=== PATIENT | female | born 1950 | race Asian ===

== ENCOUNTER → 2024-01-01 11:10 | Outpatient (REF) | payer MEDICARE, BC, SELFPAY | LOC: HWRAD 11:10 | PROVIDERS: ATTENDING PHYSICIAN Obstetrics & Gynecology; FAMILY PHYSICIAN Family Medicine | DX: Z12.31 Encounter for screening mammogram for malignant neoplasm of breast (principal); Z13.820 Encounter for screening for osteoporosis; M81.0 Age-related osteoporosis without current pathological fracture; Z78.0 Asymptomatic menopausal state | CPT/HCPCS: 77063; 77067; 77080 ==

== ENCOUNTER 2024-05-06 20:03 | Emergency (ER) | payer MEDICARE, BC, SELFPAY ==
[2024-05-06 20:08] VITALS: BP 132/92
--- NOTE | 2024-05-06 20:31 | ED.GENMED ---
History of Present Illness
General
Chief Complaint: Heart Rate Problem
Time Seen by Provider: 05/06/24 20:17
History of Present Illness
History of Present Illness:
Patient is a 73-year-old female with history of hypertension, hyperlipidemia presenting to the emergency department palpitations. Patient states that she was in her usual state of health when she came home and was back to lay down when she felt
palpitations and bilateral jaw pain. She states that she was going to check her blood pressure and then the pain worsened so she came in for further evaluation. She denies any fevers or chills. She does have some chest pain. No shortness of
breath. No lightheadedness dizziness. No nausea vomiting. No diarrhea. No leg swelling hemoptysis recent travel or history of cancer or history of blood clot. She does not drink alcohol. No drug use. No problems with her thyroid that she is
aware of. At this time she does feel like she is back to normal. She is on metoprolol 50 mg extended release once a day that she states that she took for anxiety. She states that she was on a different beta-galindo for the anxiety though it was
switched to metoprolol few months ago.
Past History
Past History
ED Past Medical History: HTN, Hypercholesterolemia and Other (OA, migraines)
ED Past Surgical History: None
Social History
Tobacco: Non-smoker
Alcohol: None
Drug: None
Personal:
Living: with family
Employment: Employed
Family History
Family History: Hypertension
Phy Exam
Physical Exam
Physical Exam:
GENERAL: in no acute distress
HEENT: normocephalic, extraocular movements intact, moist oral mucosa
NECK: normal inspection
RESPIRATORY: no respiratory distress, clear to auscultation bilaterally
CARDIOVASCULAR: regular rate and rhythm
ABDOMEN/: soft, non-distended, non-tender to palpation, no rebound or guarding
EXTREMITIES: non-tender, no edema/swelling
NEUROLOGIC: awake and alert, moves all extremities
SKIN: warm
Course
Orders/Labs/Results
Orders:
Orders
05/06/24 20:05
Electrocardiogram (*1) Urgent
Reason for Study: Chest Pain
Cardiac Monitoring- Treatment ONCE
IV Insert/Care/Rem.- Treatment PRN
O2 Therapy [RESP] Urgent
Titrate/Wean O2 to maintain O2 sat greater than (%): 90
Special Instructions: Maintain sats >/=90%
Pulse Ox/spot Check [RESP] Urgent
Quantity: 1
Special Instructions: ON ROOM AIR
05/06/24 20:06
EKG- Treatment ONCE
05/06/24 20:36
Complete Blood Count/With Diff Urgent
Comprehensive Metabolic Panel Urgent
Magnesium Urgent
Thyroid profile [TSH Reflex To Free T4] Urgent
05/06/24 21:12
Troponin I Urgent
05/07/24 00:20
Troponin I Urgent
Abnormal Lab Results
05/06/24
20:36
Absolute Monos (auto) 1.1 H 10^3/uL
(0.1-0.6)
Monocytes % 12.2 H %
(1.7-9.3)
Sodium 127 L mmol/L
(135-145)
Chloride 94 L mmol/L
(98-107)
BUN 18 H mg/dl
(7-17)
Glucose 133 H mg/dl
(70-99)
Alkaline Phosphatase 163 H U/L
(38-126)
05/06/24 20:36
05/06/24 20:36
Vital Signs
Initial and Last Documented VS:
Initial Vital Signs
Temp Pulse Resp BP Pulse Ox
98.8 F 143 22 132/92 98
05/06/24 20:08 05/06/24 20:08 05/06/24 20:08 05/06/24 20:08 05/06/24 20:08
Last Documented Vital Signs
Temp Pulse Resp BP Pulse Ox
98.8 F 94 17 138/85 97
05/06/24 20:08 05/06/24 22:15 05/06/24 22:15 05/06/24 22:00 05/06/24 22:15
MDM/Problems Addressed
Differential Diagnosis Includes:
Patient is a 73-year-old woman with history of hypertension, hyperlipidemia currently on metoprolol presenting to the emergency department palpitations that have now resolved. Vitals here initially were notable for heart rate in the 140s. However
during my evaluation heart rate is in the 80s and per my interpretation of the monitor was in normal sinus rhythm. Exam is reassuring. Unclear cause of palpitations. Initial EKG per my interpretation A-fib with RVR. Considered PE however less
likely as she does not have any signs or symptoms to suggest. No signs of infectious etiology.. Will check electrolytes including troponin given the jaw pain.
*Critical Care Note
Total Time (30-74mins, 75-104mins- exclusive of procedures): Not Applicable
Update Note
Update Note:
Blood work notable for sodium of 127. Per chart review it appears that patient does have history of hyponatremia. Patient does state that she has history of and did require salt tablets at 1 point. She drinks about 3-4 bottles a day. She does
not appear dehydrated. She will follow-up with PCP for repeat blood work. Patient remains in normal sinus rhythm. [id number] is 3. I discussed with cardiology who recommended starting her on Eliquis and keeping the metoprolol the same and they
will follow-up with her outpatient. Initial troponin negative. However patient was having jaw pain with the episode and some chest pain so will obtain delta troponin. If negative patient can be discharged home.
ED Attending Note
-
Portions of this chart may have been created with voice recognition software.� Occasional wrong word or��sound alike� substitutions may have occurred due to the inherent limitations of voice recognition software.
Discharge Plan
Departure
Discharge Problem:
Atrial fibrillation
Instructions: Atrial Fibrillation (DC)
Prescriptions:
New
Eliquis 5 mg tablet
5 mg PO BID Qty: 20 0RF
No Action
cetirizine 10 MG tablet
10 mg PO DAILYPRN PRN (Reason: allergies)
atorvastatin [Lipitor] 20 mg Tablet
20 mg PO QPM
metoprolol succinate 50 mg Tablet Extended Release 24 Hr
50 mg PO HS
losartan 100 mg Tablet
100 mg PO HS
coenzyme Q10 [CoQ-10] 100 mg Capsule
100 mg PO QPM
melatonin 5 mg Tablet
5 mg PO HS
cholecalciferol (vitamin D3) [Vitamin D3] 50 mcg (2,000 unit) Tablet
150 mcg PO DAILY
Referrals:
Augustine Cronin MD [Family Provider] -
Daly Power MD [Active] -
Activity Restrictions/Additional Instructions:
You were seen in the Emergency Department today for A-fib. I discharged you on a blood thinner. Please follow-up with the primary care doctor as well as cardiology as he will need a refill on the blood thinner. Please also follow-up with your
primary care doctor as your sodium level was low and you need to have it repeated.
We would like for you to follow up with your primary care physician for further evaluation. If you experience fever, worsening of your symptoms, or develop any other new or concerning symptoms, please return to the Emergency Department immediately.
Please see the attached sheet for additional information.
Interventions
Interventions:
*Risk Screen - Suicide Last Done: 05/06/24 20:45
*General Assessment Last Done: 05/06/24 20:45
*Neglect/Abuse Screening Last Done: 05/06/24 20:08
ED- Fall Risk Assessment Last Done: 05/06/24 20:32
*ED COVID-19 Vaccine History Last Done: 05/06/24 20:45
ED- Cardiac Assessment Last Done: 05/06/24 20:32
ED- Pulmonary Assessment Last Done: 05/06/24 20:32
Discharge Date and Time
Print Language: SWAZI
[2024-05-06 20:33] VITALS: BP 137/78
[2024-05-06 20:42] VITALS: BMI 29.0
[2024-05-06 20:48] LABS: % Basophils 0.6 % (0-2); % Eosinophils 2.9 % (0-6); % Immature Granulocytes 0.2 % (0-0.5); % Lymphocytes 24.9 % (20.5-51.1); % Monocytes 12.2 % (1.7-9.3); % Neutrophils 59.2 % (42.2-75.2); Absolute Basophils 0.1 10^3/uL (0-0.2); Absolute Eosinophils 0.3 10^3/uL (0-0.7); Absolute Lymphocytes 2.1 10^3/uL (1.2-3.4); Absolute Monocytes 1.1 10^3/uL (0.1-0.6); Absolute Neutrophils 5.1 10^3/uL (1.4-6.5); Hematocrit 38.8 % (37.0-47.0); Hemoglobin 13.7 g/dL (12.0-16.0); Mean Corp Hgb Conc. 35.3 g/dL (33.0-37.0); Mean Corpuscular Hgb 30.5 pg (27.0-31.0); Mean Corpuscular Volume 86.4 fL (81.0-99.0); Mean Platelet Volume 9.8 fL (7.4-10.4); Nucleated Red Blood Cells % 0 %; Platelet Count 260 10^3/uL (130-400); Red Blood Cell Count 4.49 10^6/uL (4.20-5.40); Red Cell Dist. Width 12.7 % (11.5-14.5); White Blood Cell Count 8.6 10^3/uL (4.8-10.8)
[2024-05-06 21:00] VITALS: BP 142/83
[2024-05-06 21:08] LABS: ALT (SGPT) 23 U/L (0-35); AST (SGOT) 30 U/L (14-36); Albumin 4.4 g/dl (3.5-5.0); Alkaline Phosphatase 163 U/L (38-126); Blood Urea Nitrogen 18 mg/dl (7-17); Calcium 9.5 mg/dl (8.4-10.2); Carbon Dioxide 27 mmol/L (22-30); Chloride 94 mmol/L (98-107); Estimated Creatinine Clearance 77 ml/min; Glucose 133 mg/dl (70-99); Magnesium 2.1 mg/dl (1.6-2.3); Potassium 4.2 mmol/L (3.5-5.1); Sodium 127 mmol/L (135-145); Total Bilirubin 0.3 mg/dl (0.2-1.3); Total Protein 7.3 g/dl (6.3-8.2); eGFR > 60.00
[2024-05-06 21:12] VITALS: BP 151/85
[2024-05-06 22:00] VITALS: BP 138/85
[2024-05-06 22:18] LABS: Troponin I < 0.012 ng/ml
[2024-05-06 23:00] VITALS: BP 123/72
[2024-05-07] VITALS: BP 118/70
[2024-05-07 00:59] LABS: Troponin I 0.027 ng/ml
[2024-05-07 01:34] VITALS: BP 149/82
--- NOTE | 2024-05-07 01:54 | ED.GENMED ---
History of Present Illness
General
Chief Complaint: Heart Rate Problem
Time Seen by Provider: 05/06/24 20:17
Past History
Past History
ED Past Medical History: HTN, Hypercholesterolemia and Other (OA, migraines)
ED Past Surgical History: None
Social History
Tobacco: Non-smoker
Alcohol: None
Drug: None
Personal:
Living: with family
Employment: Employed
Family History
Family History: Hypertension
Course
Orders/Labs/Results
Orders:
Orders
05/06/24 20:05
Electrocardiogram (*1) Urgent
Reason for Study: Chest Pain
Cardiac Monitoring- Treatment ONCE
IV Insert/Care/Rem.- Treatment PRN
O2 Therapy [RESP] Urgent
Titrate/Wean O2 to maintain O2 sat greater than (%): 90
Special Instructions: Maintain sats >/=90%
Pulse Ox/spot Check [RESP] Urgent
Quantity: 1
Special Instructions: ON ROOM AIR
05/06/24 20:06
EKG- Treatment ONCE
05/06/24 20:36
Complete Blood Count/With Diff Urgent
Comprehensive Metabolic Panel Urgent
Magnesium Urgent
Thyroid profile [TSH Reflex To Free T4] Urgent
05/06/24 21:12
Troponin I Urgent
05/07/24 00:24
Troponin I Urgent
Abnormal Lab Results
05/06/24
20:36
Absolute Monos (auto) 1.1 H 10^3/uL
(0.1-0.6)
Monocytes % 12.2 H %
(1.7-9.3)
Sodium 127 L mmol/L
(135-145)
Chloride 94 L mmol/L
(98-107)
BUN 18 H mg/dl
(7-17)
Glucose 133 H mg/dl
(70-99)
Alkaline Phosphatase 163 H U/L
(38-126)
05/06/24 20:36
05/06/24 20:36
Vital Signs
Initial and Last Documented VS:
Initial Vital Signs
Temp Pulse Resp BP Pulse Ox
98.8 F 143 22 132/92 98
05/06/24 20:08 05/06/24 20:08 05/06/24 20:08 05/06/24 20:08 05/06/24 20:08
Last Documented Vital Signs
Temp Pulse Resp BP Pulse Ox
98.8 F 76 14 149/82 98
05/06/24 20:08 05/07/24 01:34 05/07/24 01:34 05/07/24 01:34 05/07/24 01:34
Update Note
Update Note:
05/07/2024 0140 AM
Patient remains comfortable, asymptomatic and monitor continues to show normal sinus rhythm. No recurrent episodes of atrial fibrillation.
Repeat troponin has trended up minimally 0.027 but remains within normal range and likely accelerated heart rate related in nature.
Discussed prompt follow-up with cardiology and patient elects to follow-up with pediatric intensive physician in [facility], whom she is familiar with.
She will also follow-up with her primary care physician as well.
ED Attending Note
-
Portions of this chart may have been created with voice recognition software.� Occasional wrong word or��sound alike� substitutions may have occurred due to the inherent limitations of voice recognition software.
Discharge Plan
Departure
Patient Disposition: Home (Routine Discharge)
Date of Disposition: 05/07/24
Time of Disposition: 01:40
Patient with high blood pressure during this ER visit?: No
Condition: Good
Discharge Problem:
Atrial fibrillation
Instructions: Atrial Fibrillation (DC)
Prescriptions:
New
Eliquis 5 mg tablet
5 mg PO BID Qty: 20 0RF
No Action
cetirizine 10 MG tablet
10 mg PO DAILYPRN PRN (Reason: allergies)
atorvastatin [Lipitor] 20 mg Tablet
20 mg PO QPM
metoprolol succinate 50 mg Tablet Extended Release 24 Hr
50 mg PO HS
losartan 100 mg Tablet
100 mg PO HS
coenzyme Q10 [CoQ-10] 100 mg Capsule
100 mg PO QPM
melatonin 5 mg Tablet
5 mg PO HS
cholecalciferol (vitamin D3) [Vitamin D3] 50 mcg (2,000 unit) Tablet
150 mcg PO DAILY
Referrals:
Augustine Cronin MD [Family Provider] -
Daly Power MD [Active] -
Activity Restrictions/Additional Instructions:
You were seen in the Emergency Department today for A-fib. I discharged you on a blood thinner. Please follow-up with the primary care doctor as well as cardiology as he will need a refill on the blood thinner. Please also follow-up with your
primary care doctor as your sodium level was low and you need to have it repeated.
We would like for you to follow up with your primary care physician for further evaluation. If you experience fever, worsening of your symptoms, or develop any other new or concerning symptoms, please return to the Emergency Department immediately.
Please see the attached sheet for additional information.
Interventions
Interventions:
*Risk Screen - Suicide Last Done: 05/06/24 20:45
*General Assessment Last Done: 05/06/24 20:45
*Neglect/Abuse Screening Last Done: 05/06/24 20:08
ED- Fall Risk Assessment Last Done: 05/06/24 20:32
*ED COVID-19 Vaccine History Last Done: 05/06/24 20:45
ED- Cardiac Assessment Last Done: 05/06/24 23:15
ED- Pulmonary Assessment Last Done: 05/06/24 23:15
Discharge Date and Time
Print Language: CZECH
== END 2024-05-07 01:50 | disposition home or self-care (01) ==
LOC: EMR 20:03
PROVIDERS: Emergency Medicine; EMERGENCY PHYSICIAN Student in an Organized Health Care Education/Training Program; FAMILY PHYSICIAN Family Medicine
DX: I48.91 Unspecified atrial fibrillation (principal); R68.84 Jaw pain; R07.9 Chest pain, unspecified; I10 Essential (primary) hypertension; E78.00 Pure hypercholesterolemia, unspecified; F41.9 Anxiety disorder, unspecified; M19.90 Unspecified osteoarthritis, unspecified site; G43.909 Migraine, unspecified, not intractable, without status migrainosus; Z79.899 Other long term (current) drug therapy
CPT/HCPCS: 99284; 80053; 83735; 84443; 84484; 85025; 93005

== ENCOUNTER 2024-07-21 22:05 | Emergency (ER) | payer MEDICARE, BC, SELFPAY ==
[2024-07-21 22:08] VITALS: BP 149/77
[2024-07-21 22:57] VITALS: BP 127/64
[2024-07-21 23:00] VITALS: BP 108/79
--- NOTE | 2024-07-21 23:20 | ED.GENMED ---
History of Present Illness
General
Chief Complaint: Blood Pressure Problem
Time Seen by Provider: 07/21/24 22:41
History of Present Illness
History of Present Illness:
TIME OF INITIAL ENCOUNTER: 11:30 PM
HPI: The patient had been taking losartan and Lopressor for high blood pressure. For reasons that are unclear, a train master in [place] placed her on a pill that includes amlodipine 5 mg/valsartan 160 mg/hydrochlorothiazide. She has been
taking this for the past 8 days. Today when she was at a train master office ([place]), she was found to be hypotensive with pressures in the 90s. She felt 'woozy'. It was recommended she goes home and drinks Gatorade. There were no other changes to
her medication recommendations. She did take her metoprolol this evening. Her blood pressure was higher in the evening.
EXAM:
GENERAL: Well appearing in no distress, systolic blood pressures range from 108-133
HEENT: Moist oral mucosa
NEUROLOGIC: Excellent strength all extremities, no obvious coordination deficits
PSYCHIATRIC: Appropriate mental status, normal insight and judgement
EXTREMITIES: Nontender, no edema, moves all extremities equally
SKIN: No rash, no lesions
NUMBER AND COMPLEXITY OF PROBLEMS ADDRESSED AT THE ENCOUNTER
� Chronic conditions affecting care: High blood pressure, hyperlipidemia
� Acute Exacerbation and/or Progression of Chronic Illness:
� Differential Diagnosis includes: Labile hypertension, poorly controlled high blood pressure, medication effects from antihypertensive
AMOUNT AND/OR COMPLEXITY OF DATA TO BE REVIEWED AND ANALYZED
� I performed an independent evaluation of and my interpretation is:
EKG:
CT:
X-rays:
Laboratory Studies:
Other:
� Review of other/old records: The patient was here in April with atrial fibrillation and started on anticoagulation at that time
� Clinical information was obtained by an independent historian: I spoke to at bedside
� Prescriptions/Medications Considered but not given:
� Further testing considered but not performed: No indication for blood work at this time
RISK OF COMPLICATIONS AND/OR MORBIDITY OR MORTALITY OF PATIENT MANAGEMENT
� Social determinants of health affecting care: Lives at home
� Discussion with other providers:
� Escalation of care including admission/observation vs risk of discharge considered: As patient was hypotensive in the setting of being on amlodipine/valsartan/hydrochlorothiazide, I recommend he stop this medication especially
as she has been chronically hyponatremic. She is to resume her prior blood pressure medications and follow-up with her train master.
ANY OTHER UPDATES:
Past History
Past History
ED Past Medical History: HTN, Hypercholesterolemia and Other (OA, migraines)
ED Past Surgical History: None
Social History
Tobacco: Non-smoker
Alcohol: None
Drug: None
Personal:
Living: with family
Employment: Employed
Family History
Family History: Hypertension
Phy Exam
Physical Exam
Physical Exam:
See HPI
Course
Orders/Labs/Results
Orders:
07/21/24 22:15
07/21/24 22:15
Vital Signs
Initial and Last Documented VS:
Initial Vital Signs
Temp Pulse Resp BP Pulse Ox
98.0 F 83 20 149/77 99
07/21/24 22:08 07/21/24 22:08 07/21/24 22:08 07/21/24 22:08 07/21/24 22:08
Last Documented Vital Signs
Temp Pulse Resp BP Pulse Ox
98.0 F 83 20 108/79 100
07/21/24 22:08 07/21/24 22:08 07/21/24 22:08 07/21/24 23:00 07/21/24 23:00
*Critical Care Note
Total Time (30-74mins, 75-104mins- exclusive of procedures): Not Applicable
ED Attending Note
-
Portions of this chart may have been created with voice recognition software.� Occasional wrong word or��sound alike� substitutions may have occurred due to the inherent limitations of voice recognition software.
Discharge Plan
Departure
Patient Disposition: Home (Routine Discharge)
Date of Disposition: 07/21/24
Time of Disposition: 23:44
Patient with high blood pressure during this ER visit?: Yes
Discharge Problem:
Medication reaction
Prescriptions:
No Action
atorvastatin [Lipitor] 20 mg Tablet
20 mg PO QPM
metoprolol succinate 50 mg Tablet Extended Release 24 Hr
50 mg PO HS
coenzyme Q10 [CoQ-10] 100 mg Capsule
100 mg PO QPM
melatonin 5 mg Tablet
5 mg PO HS
Eliquis 5 mg tablet
5 mg PO BID Qty: 20 0RF
[id number] 5-160-25 mg Tablet
1 tab PO DAILY
Referrals:
Augustine Cronin MD [Family Provider] -
Activity Restrictions/Additional Instructions:
Since you are symptomatic from low blood pressure earlier today in the setting of the new medication, I recommend against taking the amlodipine/valsartan/hydrochlorothiazide especially if you have a history of hyponatremia. I recommend that you
resume your old medications. Follow-up your train master for further recommendation.
Interventions
Interventions:
*Risk Screen - Suicide Last Done: 07/21/24 22:56
*General Assessment Last Done: 07/21/24 22:56
*Neglect/Abuse Screening Last Done: 07/21/24 22:56
*ED COVID-19 Vaccine History Last Done: 07/21/24 22:56
ED- Cardiac Assessment Last Done: 07/21/24 22:56
ED- Neurological Assessment Last Done: 07/21/24 22:56
ED- Pulmonary Assessment Last Done: 07/21/24 22:56
Discharge Date and Time
Print Language: WELSH
== END 2024-07-22 | disposition home or self-care (01) ==
LOC: EMR 22:05
PROVIDERS: EMERGENCY PHYSICIAN Emergency Medicine; FAMILY PHYSICIAN Family Medicine
DX: I95.2 Hypotension due to drugs (principal); T50.995A Adverse effect of other drugs, medicaments and biological substances, initial encounter; E78.00 Pure hypercholesterolemia, unspecified; I10 Essential (primary) hypertension; I48.91 Unspecified atrial fibrillation; Z79.01 Long term (current) use of anticoagulants
CPT/HCPCS: 99282